=== PATIENT | female | born 1960 | race Caucasian/White ===

== ENCOUNTER 2025-05-14 06:06 | Day surgery (SDC) | payer OTHER ==
[2025-05-14] MEDS ORDERED: Ondansetron 4 MG/2 ML SDV IVPUSH PRN (06:30)
[2025-05-14] MEDS ORDERED: Dexamethasone 4 MG/ML SDV ONE (06:42)
[2025-05-14] MEDS: Povidone-Iodine 5% Sterile Ophth Soln 30 ML Bottle EYELF ONE ×2 (06:53→08:00)
[2025-05-14] MEDS: Moxifloxacin 0.5% Ophth Soln 3 ML Bottle EYELF ONE (06:53)
[2025-05-14] MEDS: Phenylephrine 10% Ophth Soln 5 ML Bot EYELF PRN (06:54)
[2025-05-14] MEDS: Cataract Ophth Solution EYELF ONE (06:54)
[2025-05-14] MEDS: Timolol Maleate 0.5% Ophth Soln 5 ML Bottle EYELF ONE (06:54)
[2025-05-14] MEDS: Diclofenac Sodium 0.1% Ophth Soln 5 ML Bottle EYELF ONE (08:01)
[2025-05-14] MEDS: Apraclonidine 0.5% Ophth Soln 5 ML Bot EYELF ONE (08:01)
== END 2025-05-14 08:51 | disposition home or self-care (01) ==
LOC: DL.SDS 06:06 → EDSEX 08:00 → DL.SDS 08:51
PROVIDERS: ATTEND Ophthalmology
DX: H25.813 Combined forms of age-related cataract, bilateral (principal); I10 Essential (primary) hypertension; E78.5 Hyperlipidemia, unspecified; Z88.2 Allergy status to sulfonamides; Z79.899 Other long term (current) drug therapy
CPT/HCPCS: A9270-GY; J2003; J3373; J3490; V2632